=== PATIENT | male | born 1985 ===

== ENCOUNTER 2017-08-28 04:45 | Emergency (ER) | payer SELFPAY ==
[2017-08-28] MEDS ORDERED: Tdap Vaccine 0.5 ml Vial (10-64 yrs) IM ONE (05:18)
[2017-08-28 05:29] VITALS: O2SAT 97
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
[2017-08-28] MEDS ORDERED: Tetanus/Diphtheria Toxoids 0.5 ml Syringe IM ONE (05:50)
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
[2017-08-28 06:34] VITALS: BP 112/60; PULSE 84; RESP 14; TEMP 98
== END 2017-08-28 06:42 | disposition home or self-care (01) ==
LOC: C.ER 04:45
DX: S00.83XA Contusion of other part of head, initial encounter (principal); S00.03XA Contusion of scalp, initial encounter; S00.412A Abrasion of left ear, initial encounter; Y08.89XA Assault by other specified means, initial encounter

== ENCOUNTER 2017-10-02 09:59 | Emergency (ER) | payer OTHER ==
[2017-10-02 10:16] VITALS: BMI 27.8
[2017-10-02 10:20] VITALS: PULSE 64; TEMP 97.3
--- NOTE | 2017-10-02 11:28 | C.PDOC ---
History Of Present Illness VIA TRANS 32-YEAR-OLD MALE, PRESENTS TO THE EMERGENCY DEPARTMENT WITH COMPLAINTS OF INTERMIT LEFT EAR PAIN, DIZZY X 1 MO. NO FEVER, DC, ALLERGY SX. DIZZY WORSE W STANDING, MOVING. CURRENTLY ASYMPTOMATIC EXAM NAD HEENT NO NYSTAGMUS, INDUCIBLE VERTIGO; B/L EARS WNL GAIT STEADY NEURO NO FOCAL DEF Time Seen by Provider: 10/02/17 10:50 Chief Complaint (Nursing): Dizziness/Lightheaded History Per: Patient History/Exam Limitations: no limitations Current Symptoms Are (Timing): Still Present Past Medical History Reviewed: Historical Data, Nursing Documentation, Vital Signs Vital Signs: Last Vital Signs Temp 97.3 F L 10/02/17 10:17 Pulse 64 10/02/17 11:42 Resp 18 10/02/17 11:42 BP 126/76 10/02/17 11:42 Pulse Ox 99 10/02/17 11:42 Family History: States: No Known Family Hx - Social History Hx Alcohol Use: Yes (pt admits to drinking 20 beers today) Hx Substance Use: No (denies) - Immunization History Hx Tetanus Toxoid Vaccination: No Hx Influenza Vaccination: No Hx Pneumococcal Vaccination: No Review Of Systems Constitutional: Negative for: Fever, Chills, Weakness ENT: Positive for: Ear Pain (left). Negative for: Nose Discharge, Nose Congestion, Throat Pain Gastrointestinal: Negative for: Nausea, Vomiting Musculoskeletal: Negative for: Neck Pain, Back Pain Neurological: Positive for: Dizziness. Negative for: Weakness, Numbness, Headache Physical Exam - Physical Exam Appears: Non-toxic, No Acute Distress Skin: Normal Color, Warm, Dry, No Rash Head: Atraumatic, Normacephalic Eye(s): bilateral: Normal Inspection, PERRL, EOMI, Other (NO NYSTAGMUS, INDUCIBLE VERTIGO) Ear(s): Bilateral: Normal Nose: Normal Oral Mucosa: Moist Lips: Normal Appearing Neck: Normal ROM Chest: Symmetrical Cardiovascular: Rhythm Regular, No Murmur Respiratory: Normal Breath Sounds, No Accessory Muscle Use Gastrointestinal/Abdominal: Soft, No Tenderness, No Guarding, No Rebound Extremity: Normal ROM, No Deformity, No Swelling Neurological/Psych: Oriented x3, Normal Speech ED Course And Treatment O2 Sat by Pulse Oximetry: 100 (RA) Pulse Ox Interpretation: Normal Disposition Counseled Patient/Family Regarding: Diagnosis, Need For Followup, Rx Given - Disposition Referrals: [facility] [Outside] [facility] [Outside] Disposition: HOME/ ROUTINE Disposition Time: 11:28 Condition: IMPROVED Prescriptions: Meclizine [Antivert] 50 mg PO TID PRN #21 tab PRN Reason: Dizziness Instructions: Vertigo (a Type of Dizziness) (DC) Forms: [email or web address] (Upper Sorbian), Work Excuse Print Language: BURUNDIAN - Clinical Impression Clinical Impression: Otalgia, Vertigo - Scribe Statement The provider has reviewed the documentation as recorded by the Scribe (Abhijit Ramos) All medical record entries made by the Scribe were at my direction and personally dictated by me. I have reviewed the chart and agree that the record accurately reflects my personal performance of the history, physical exam, medical decision making, and the department course for this patient. I have also personally directed, reviewed, and agree with the discharge instructions and disposition.
[2017-10-02 11:43] VITALS: BP 126/76; RESP 18
[2017-10-02 18:07] VITALS: O2SAT 100
== END 2017-10-02 11:43 | disposition home or self-care (01) ==
LOC: C.ER 09:59
DX: H92.02 Otalgia, left ear (principal); R42 Dizziness and giddiness